=== PATIENT | female | born 1945 | race American Indian/Alaskan Native ===

== ENCOUNTER 2021-07-10 05:46 | Observation (INO) | payer MEDICARE ==
--- NOTE | 2021-07-10 06:12 | Emergency Department Report ---
ED Shortness of Breath HPI - General Chief Complaint: Chest Pain Stated Complaint: HIGH BP//DIALYSIS Time Seen by Provider: 07/10/21 06:09 Source: patient Mode of arrival: Ambulatory Limitations: No Limitations - History of Present Illness Initial Comments: Patient presents with chest pain or shortness of breath. She is a renal failure patient who is not been dialyzed in several days. She states that she is visiting her family here from [place]. She thought she had she would be able to arrange dialysis here. This was unsuccessful. She has not had her last 2 treatments. Normally, she has dialyzed on Sunday, , Sunday. Today, patient started noticing some chest tightness and difficulty breathing. She states that the shortness of breath is exertional and positional. She describes orthopnea. She has had some swelling in her feet and ankles. She has not really paid attention to her weight recently. She admits that she was supposed to go home today, but because she was having the symptoms decided to come here. She has not specifically noticed any alleviating factors of her symptoms. She describes them as mild. The chest pain does not radiate or migrate. - Related Data Allergies Allergy/AdvReac Type Severity Reaction Status Date / Time No Known Allergies Allergy Unverified 07/10/21 06:33 ED Review of Systems ROS: Stated complaint: HIGH BP//DIALYSIS Other details as noted in HPI Comment: All other systems reviewed and negative Constitutional: denies: fever Eyes: denies: eye pain ENT: denies: throat pain Respiratory: denies: cough Cardiovascular: as per HPI, chest pain Endocrine: denies: unexplained weight loss Gastrointestinal: denies: abdominal pain Genitourinary: denies: hematuria Musculoskeletal: denies: back pain Skin: denies: rash Neurological: denies: headache Hematological/Lymphatic: denies: easy bruising ED Past Medical Hx - Past Medical History Hx Hypertension: Yes Hx Renal Disease: Yes ( End-stage on dialysis) - Family History Family history: hypertension ED Physical Exam - General Limitations: No Limitations General appearance: alert, in no apparent distress - Head Head exam: Present: atraumatic, normocephalic - Eye Eye exam: Present: normal appearance, EOMI. Absent: scleral icterus - ENT ENT exam: Present: normal exam, normal orophraynx, normal external ear exam - Neck Neck exam: Present: normal inspection, full ROM. Absent: meningismus - Respiratory Respiratory exam: Present: rales. Absent: respiratory distress - Cardiovascular Cardiovascular Exam: Present: regular rate, normal rhythm - GI/Abdominal GI/Abdominal exam: Present: soft. Absent: distended - Extremities Exam Extremities exam: Present: normal capillary refill. Absent: pedal edema - Back Exam Back exam: Absent: CVA tenderness (R), CVA tenderness (L) - Neurological Exam Neurological exam: Present: alert, oriented X3. Absent: motor sensory deficit - Psychiatric Psychiatric exam: Present: normal affect, normal mood - Skin Skin exam: Present: warm, dry ED Course Vital Signs 07/10/21 05:52 Temperature 98.6 F Pulse Rate 76 Respiratory 18 Rate Blood Pressure 225/144 O2 Sat by Pulse 94 Oximetry - Reevaluation(s) Reevaluation #1: 07/10/21 06:11 IV and labs ordered. Reevaluation #2: 07/10/21 07:54 Labs have been noted. X-ray was reviewed. Dr. Randolph was notified. Agrees to admit with plans for dialysis later today. ED Medical Decision Making - Lab Data Result diagrams: 07/10/21 06:52 07/10/21 06:52 - EKG Data -: EKG Interpreted by Me EKG shows normal: sinus rhythm Rate: normal - EKG Data When compared to previous EKG there are: previous EKG unavailable 07/10/21 06:17 NSR at 75 with a LBBB. QRS is 136. QTc is prolonged at 502. There is no ST elevation or concordance. No discordance greater than 5mm. - Radiology Data Radiology results: report reviewed - Medical Decision Making patient presented with chest pain or shortness of breath in the setting of missed dialysis x2. She certainly does not seem to have evidence of STEMI based on EKG. There is no old EKG for comparison, but I presume that her bundle branch block is likely old. She is not having symptoms concerning for Covid or pneumonia. Radiographically, there is no evidence of either. She does not have a pulse deficit or wide mediastinum suggestive of aortic dissection. Labs and x-ray have been noted. I do believe that admission is appropriate. Her labs could be at baseline, but we have no old records for Comparison Critical Care Time: No Critical care attestation.: If time is entered above; I have spent that time in minutes in the direct care of this critically ill patient, excluding procedure time. ED Disposition Clinical Impression: Short of breath on exertion, Substernal chest pain, ESRD (end stage renal disease) on dialysis, Hypertensive urgency Disposition: 02 SHORT TERM HOSPITAL Is pt being admited?: Yes Does the pt Need Aspirin: No Condition: Stable
[2021-07-10] MEDS ORDERED: ASPIRIN 325 MG TAB PO NR (07:00)
--- NOTE | 2021-07-10 07:09 | XRay Report ---
CHEST 2 VIEWS INDICATION / CLINICAL INFORMATION: chest pain STUDY TIME: 636 COMPARISON: None available. FINDINGS: SUPPORT DEVICES: Dual lumen right subclavian central line is seen with tip in the area of the distal superior vena cava. HEART / MEDIASTINUM: Mild cardiomegaly. Cardiac surgical changes. LUNGS / PLEURA: Mild chronic appearing changes are seen. Probable scarring is seen in the lingula. Ar tifact is seen in the right base on PA view. No obvious acute pneumonic infiltrates are seen. No pneu mothorax. ADDITIONAL FINDINGS: No significant additional findings. Signer Name: Jose Arellano MD Signed: 07/10/2021 7:04 AM Workstation Name: [id number]
[2021-07-10 07:35] LABS: Basophils # (Auto) 0.1 K/mm3 (0.0-0.1); Basophils % (Auto) 1.1 % (0.0-1.8); Eosinophils # (Auto) 0.4 K/mm3 (0.0-0.4); Eosinophils % (Auto) 6.2 % (0.0-4.3); Hematocrit 33.3 % (30.3-42.9); Hemoglobin 11.1 gm/dl (10.1-14.3); Lymphocytes # (Auto) 1.2 K/mm3 (1.2-5.4); Mean Corpuscular HGB Conc 33 % (30-34); Mean Corpuscular Volume 85 fl (79-97); Monocytes # (Auto) 0.5 K/mm3 (0.0-0.8); Monocytes % (Auto) 6.6 % (0.0-7.3); Platelet Count 238 K/mm3 (140-440); Red Blood Count 3.92 M/mm3 (3.65-5.03); Red Cell Distribution Width 18.9 % (13.2-15.2)
[2021-07-10 07:45] LABS: Albumin 4.4 g/dL (3.9-5); Calcium 9.9 mg/dL (8.4-10.2)
[2021-07-10] MEDS ORDERED: ASPIRIN 81 MG TAB CHEW PO ONE (07:51)
[2021-07-10] MEDS ORDERED: NITROGLYCERIN 0.4 MG TAB SUBL SL PRN (07:51)
--- NOTE | 2021-07-10 07:57 | History and Physical Report ---
History of Present Illness Date of examination: 07/10/21 Date of admission: 07/10/2021 Chief complaint: Shortness of breath History of present illness: 75-year-old female with past medical history of hypertension, triple-vessel bypass in 2007, aortic valve replacement in 2007, ESRD on Sunday//Sunday hemodialysis presenting with chief complaint of shortness of breath. She is originally from [place] and is visiting her daughter here in [place]. She has been unsuccessful at rearranging hemodialysis outpatient. She missed her last 2 dialysis sessions on and Sunday. Today patient noticed some difficulty breathing. This shortness of breath is primarily exertional and positional. She also describes some orthopnea. She denied any swelling in her lower extremities. Patient admits that she was supposed to go home today however became alarmed by the symptoms and came to our emergency department. On my encounter she had no acute complaints. She states that her symptoms are more of shortness of breath rather than chest pain. She denies any pain in her jaw or shoulders. Of note, patient's blood pressure was noted to be elevated with systolic pressure of 220. Patient states that she has missed some of her home medications. When asked why she states that she just forgot to take them. Labetalol 10 mg IV ordered. Patient's home medications resumed. PMH Hypertension CAD ESRD on HD PSH Triple-vessel bypass surgery in 2007 Porcine aortic valve replacement in 2007 FH Reviewed and noncontributory SH Nicotine denies active use Alcohol denies active use Recreational drugs denies Medications and Allergies Allergies Allergy/AdvReac Type Severity Reaction Status Date / Time No Known Allergies Allergy Unverified 07/10/21 06:33 Active Meds: Active Medications Aspirin (Aspirin 325 Mg Tab) 325 mg PO ONCE@0700 NR Stop: 07/10/21 11:00 Last Admin: 07/10/21 07:29 Dose: 325 mg Documented by: Nitroglycerin (Nitroglycerin 0.4 Mg Tab Subl) 0.4 mg SL .Q5MIN PRN PRN Reason: Chest Pain Exam - Physical Exam Narrative exam: Physical Exam: VITAL SIGNS: Reviewed. GENERAL: The patient appears normally developed, Vital signs as documented. NAD, pleasant elderly woman HEAD: No signs of head trauma. EYES: Pupils are equal. Extraocular motions intact. EARS: Hearing grossly intact. MOUTH: Oropharynx is normal. NECK: No adenopathy, no JVD. CHEST: Chest with clear breath sounds bilaterally. No wheezes, rales, or rhonchi. Right chest wall tunneled catheter appreciated. CARDIAC: Regular rate and rhythm. S1 and S2, without murmurs, gallops, or rubs. VASCULAR: No Edema. Peripheral pulses normal and equal in all extremities. ABDOMEN: Soft, non tender and non distended. No rebound or guarding, and no masses palpated. Bowel Sounds normal. MUSCULOSKELETAL: Good range of motion of all major joints. Extremities without clubbing, cyanosis or edema. NEUROLOGIC EXAM: Alert although orientation could not be verified as patient withdrawn no focal sensory or strength deficits. PSYCHIATRIC: Mood normal. SKIN: detail exam as documented in skin assessment - Constitutional Vitals: Temp Pulse Resp BP Pulse Ox 98.6 F 76 18 225/144 94 07/10/21 05:52 07/10/21 05:52 07/10/21 05:52 07/10/21 05:52 07/10/21 05:52 HEART Score - HEART Score Troponin: Troponin T 0.062 ng/mL (0.00-0.029) H 07/10/21 06:52 Results - Labs CBC & Chem 7: 07/10/21 06:52 07/10/21 06:52 Labs: Laboratory Last Values WBC 7.0 K/mm3 (4.5-11.0) 07/10/21 06:52 RBC 3.92 M/mm3 (3.65-5.03) 07/10/21 06:52 Hgb 11.1 gm/dl (10.1-14.3) 07/10/21 06:52 Hct 33.3 % (30.3-42.9) 07/10/21 06:52 MCV 85 fl (79-97) 07/10/21 06:52 MCH 28 pg (28-32) 07/10/21 06:52 MCHC 33 % (30-34) 07/10/21 06:52 RDW 18.9 % (13.2-15.2) H 07/10/21 06:52 Plt Count 238 K/mm3 (140-440) 07/10/21 06:52 Lymph % (Auto) 17.0 % (13.4-35.0) 07/10/21 06:52 [place] % (Auto) 6.6 % (0.0-7.3) 07/10/21 06:52 Eos % (Auto) 6.2 % (0.0-4.3) H 07/10/21 06:52 Baso % (Auto) 1.1 % (0.0-1.8) 07/10/21 06:52 Lymph # (Auto) 1.2 K/mm3 (1.2-5.4) 07/10/21 06:52 [place] # (Auto) 0.5 K/mm3 (0.0-0.8) 07/10/21 06:52 Eos # (Auto) 0.4 K/mm3 (0.0-0.4) 07/10/21 06:52 Baso # (Auto) 0.1 K/mm3 (0.0-0.1) 07/10/21 06:52 Seg Neutrophils % 69.1 % (40.0-70.0) 07/10/21 06:52 Seg Neutrophils # 4.9 K/mm3 (1.8-7.7) 07/10/21 06:52 Sodium 141 mmol/L (137-145) 07/10/21 06:52 Potassium 5.4 mmol/L (3.6-5.0) H 07/10/21 06:52 Chloride 96.9 mmol/L (98-107) L 07/10/21 06:52 Carbon Dioxide 25 mmol/L (22-30) 07/10/21 06:52 Anion Gap 25 mmol/L 07/10/21 06:52 BUN 74 mg/dL (7-17) H 07/10/21 06:52 Creatinine 11.3 mg/dL (0.6-1.2) H 07/10/21 06:52 Estimated GFR 3 ml/min 07/10/21 06:52 BUN/Creatinine Ratio 7 % 07/10/21 06:52 Glucose 93 mg/dL (65-100) 07/10/21 06:52 Calcium 9.9 mg/dL (8.4-10.2) 07/10/21 06:52 Total Bilirubin 0.30 mg/dL (0.1-1.2) 07/10/21 06:52 AST 27 units/L (5-40) 07/10/21 06:52 ALT 20 units/L (7-56) 07/10/21 06:52 Alkaline Phosphatase 58 units/L (35-129) 07/10/21 06:52 Troponin T 0.062 ng/mL (0.00-0.029) H 07/10/21 06:52 Total Protein 7.6 g/dL (6.3-8.2) 07/10/21 06:52 Albumin 4.4 g/dL (3.9-5) 07/10/21 06:52 Albumin/Globulin Ratio 1.4 % 07/10/21 06:52 Assessment and Plan Assessment and plan: 1. ESRD on HD 2. Hypertensive emergency 3. Shortness of breathmultifactorial from missed hemodialysis sessions and hypertensive emergency 4. CAD 5. history of triple vessel bypass surgery 6. history of porcine aortic valve replacement Plan: Consultation placed to nephrology for hemodialysis -Ordered labetalol 10 mg IV x1 stat Labetalol 10 mg every 4 hours as needed Resume home antihypertensive/cardiac medications: Furosemide 20 mg p.o. daily, clonidine 0.1 mg p.o. twice daily, hydralazine 50 mg p.o. 3 times daily, metoprolol XL 25 mg p.o. daily, Imdur 30 mg p.o. daily -We will likely discharge patient today after hemodialysis. - Patient Problems (1) Hypertensive emergency Current Visit: Yes Status: Acute (2) Coronary artery disease Current Visit: Yes Status: Acute (3) ESRD (end stage renal disease) on dialysis Current Visit: No Status: Acute (4) Short of breath on exertion Current Visit: No Status: Acute
[2021-07-10 08:09] LABS: Chol/HDL Ratio 2.87 %
[2021-07-10] MEDS ORDERED: oxyCODONE /ACETAMINOPHEN 5-325MG TAB PO PRN (08:30)
[2021-07-10] MEDS ORDERED: ACETAMINOPHEN 325 MG TAB PO PRN (08:30)
[2021-07-10] MEDS ORDERED: ONDANSETRON 4 MG/2 ML INJ IV PRN (08:30)
[2021-07-10] MEDS ORDERED: SODIUM CHLORIDE 0.9% 100 ML IV PRN (11:31)
--- NOTE | 2021-07-10 11:34 | Consultation ---
History of Present Illness - Reason for Consult Consult date: 07/10/21 end stage renal disease Requesting physician: CAREN FLEMING - History of Present Illness 75-year-old lady with a history of hypertension, gated by end-stage renal disease on hemodialysis on a Sunday and Sunday schedule for about a year now. Patient lives in [facility] and was visiting her daughter in [place]. She tried to make arrangements for outpatient dialysis while she was here but unfortunately things fell through. She presents to the emergency room on account of chest pain or shortness of breath of several days duration. Her last dialysis was on Sunday before she left [place]. She has thus missed 2 sessions. She complains of chest tightness and shortness of breath which is positional and also exertional. She also noticed some lower extremity swelling. No nausea or vomiting. No dizziness or diaphoresis. No cough. On presentation in the ER, blood pressure was quite high at 225/144 mmHg. She was given IV labetalol in the ER. Potassium was also high at 5.4 mmol/L. I am consulted to provide dialysis to manage her fluid and electrolyte abnormalities. Patient received dialysis this afternoon and is already feeling a bit better. Blood pressure is however still high at 182/112 mmHg. She admits she also needs antihypertensive medications. 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 denies: smoking, alcohol abuse, prescription drug abuse Family history: CAD (Mother), hypertension (Father had hypertension and at age 79 of "old age". Siblings have hypertension and heart disease) Medications and Allergies Allergies Allergy/AdvReac Type Severity Reaction Status Date / Time No Known Allergies Allergy Unverified 07/10/21 06:33 Active Meds: Active Medications Acetaminophen (Acetaminophen 325 Mg Tab) 650 mg PO Q4H PRN PRN Reason: Pain MILD(1-3)/Fever >100.5/EM Sodium Chloride (Nacl 0.9%) 100 mls @ 999 mls/hr IV RANDOLPH PRN PRN Reason: Hypotension Labetalol HCl (Labetalol 20 Mg/4 Ml Inj) 10 mg IV Q4H PRN PRN Reason: sbp>160, hold for HR < 70 Nitroglycerin (Nitroglycerin 0.4 Mg Tab Subl) 0.4 mg SL .Q5MIN PRN PRN Reason: Chest Pain Ondansetron HCl (Ondansetron 4 Mg/2 Ml Inj) 4 mg IV Q8H PRN PRN Reason: Nausea And Vomiting Oxycodone/Acetaminophen (Oxycodone /Acetaminophen 5-325mg Tab) 1 tab PO Q6H PRN PRN Reason: Pain, Moderate (4-6) Sodium Chloride (Sodium Chloride 0.9% 10 Ml Flush Syringe) 10 ml IV BID NIKI Last Admin: 07/10/21 10:17 Dose: 10 ml Documented by: Sodium Chloride (Sodium Chloride 0.9% 10 Ml Flush Syringe) 10 ml IV PRN PRN PRN Reason: LINE FLUSH Review of Systems All systems: negative (Constitutional: no fever or chills. No anorexia or weight loss. HEENT: No sore throat or sinus drainage no hearing or vision impairment . Cardiovascular: See history of present illness. Respiratory: No cough, sputum, shortness of breath,) Gastrointestinal: constipation (Admits to constipation), no abdominal pain, no nausea, no vomiting, no diarrhea, no hematemesis Musculoskeletal: other (No joint pains or stiffness) Integumentary: pruritis (Itching around her permacath site), no rash Neurological: paralysis, numbness, seizures, other (Admits to occasional dizziness), no headaches Psychiatric: no anxiety, no depression Endocrine: cold intolerance, no heat intolerance Hematologic/Lymphatic: no easy bruising Exam - Vital Signs Vital signs: Vital Signs Temp Pulse Resp BP Pulse Ox 98.6 F 76 18 225/144 94 07/10/21 05:52 07/10/21 05:52 07/10/21 05:52 07/10/21 05:52 07/10/21 05:52 - Physical Exam Narrative exam: Elderly -[place] Islander female lying in bed in no acute distress HEENT: NCAT, bilateral corneal opacities, bilateral arcus senilis Neck: Supple, no venous distention CVS: S1S2 RRR with systolic click, no murmur, rub or gallop Chest: Clear to auscultation, right IJ permacath intact Abdomen: Protuberant, soft, nontender, no organomegaly, bowel sounds are present Extremities: No edema, no clubbing Genitourinary deferred Skin warm and dry Neuro: Awake, alert no focal deficits Results - Lab Results 07/10/21 06:52 07/10/21 06:52 Most recent lab results Calcium 9.9 mg/dL (8.4-10.2) 07/10/21 06:52 Assessment and Plan - Patient Problems (1) Hyperkalemia Current Visit: Yes Status: Acute Plan to address problem: Secondary to missed dialysis treatments. Hemodialysis done as soon as possible. Follow-up potassium (2) Hypertensive emergency Current Visit: Yes Status: Acute Plan to address problem: Secondary to volume overload due to missed dialysis and also missed antihyper tensive medications. Fluid removal was done on dialysis. Resume oral antihypertensive medications and follow-up blood pressure (3) Fluid overload Current Visit: Yes Status: Acute Plan to address problem: Secondary to missed dialysis. Fluid removal on dialysis and then follow-up (4) Coronary artery disease Current Visit: Yes Status: Acute Plan to address problem: Continue medical management
[2021-07-10 12:56] LABS: Hepatitis B Surface Antigen Nonreactive (Negative); Hepatitis C Virus Antibody Non-Reactive (NonReactive)
[2021-07-10] MEDS ORDERED: METOPROLOL SUCCINATE XL 25 MG TAB PO SCH (13:00)
[2021-07-10] MEDS ORDERED: FUROSEMIDE 20 MG TAB PO SCH (13:00)
[2021-07-10] MEDS ORDERED: cloNIDine 0.1 MG TAB PO SCH (13:00)
[2021-07-10] MEDS ORDERED: hydrALAZINE 25 MG TAB PO SCH (14:00)
[2021-07-10] MEDS ORDERED: ASPIRIN 81 MG TAB CHEW ONE (15:39)
[2021-07-10] MEDS ORDERED: hydrALAZINE 25 MG TAB PO ONE (15:45)
[2021-07-10] MEDS ORDERED: hydrALAZINE 20 MG/1 ML INJ ONE (16:47)
[2021-07-10] MEDS ORDERED: hydrALAZINE 20 MG/1 ML INJ IV ONE (16:56)
--- NOTE | 2021-07-10 17:50 | Discharge Summary ---
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 She is originally from [place] and is visiting her daughter here in [place]. She has been unsuccessful at rearranging hemodialysis outpatient. She missed her last 2 dialysis sessions on and Sunday. Today patient noticed some difficulty breathing. This shortness of breath is primarily exertional and positional. She also describes some orthopnea. She denied any swelling in her lower extremities. Patient admits that she was supposed to go home today however became alarmed by the symptoms and came to our emergency department. On my encounter she had no acute complaints. She states that her symptoms are more of shortness of breath rather than chest pain. She denies any pain in her jaw or shoulders. Of note, patient's blood pressure was noted to be elevated with systolic pressure of 220. Patient states that she has missed some of her home medications. When asked why she states that she just forgot to take them. Labetalol 10 mg IV ordered. Patient's home medications resumed. Hospital Course: [facility] Otero was admitted for hypertensive emergency and fluid overload beleived to be due to missed hemodialysis sessions and noncompliance with antihypertensive medications. Workup was negative for cardiac or infectious cause to her symptoms. She underwent a hemodialysis treatment while at our facility which drastically helped her symptoms. Furthermore, her blood pressure on admission was 220's/110's. She was given IV antihypertensive as well as her oral antihypertensive therapy. Her systolic blood pressures improved to the 150's. 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 Disposition: HOME / SELF CARE / HOMELESS Final Discharge Diagnosis (Prints w/discharge instructions): Hypertensive emergency Time spent for discharge: 25 - Discharge Diagnoses (1) Hypertensive emergency Status: Acute (2) Coronary artery disease Status: Acute (3) ESRD (end stage renal disease) on dialysis Status: Acute (4) Short of breath on exertion Status: Acute Core Measure Documentation - Palliative Care Palliative Care/ Comfort Measures: Not Applicable - Core Measures Any of the following diagnoses?: none Exam - Physical Exam Narrative exam: Physical Exam: VITAL SIGNS: Reviewed. GENERAL: The patient appears normally developed, Vital signs as documented. N AD, pleasant elderly woman HEAD: No signs of head trauma. EYES: Pupils are equal. Extraocular motions intact. EARS: Hearing grossly intact. MOUTH: Oropharynx is normal. NECK: No adenopathy, no JVD. CHEST: Chest with clear breath sounds bilaterally. No wheezes, rales, or rhonchi. Right chest wall tunneled catheter appreciated. CARDIAC: Regular rate and rhythm. S1 and S2, without murmurs, gallops, or rubs. VASCULAR: No Edema. Peripheral pulses normal and equal in all extremities. ABDOMEN: Soft, non tender and non distended. No rebound or guarding, and no masses palpated. Bowel Sounds normal. MUSCULOSKELETAL: Good range of motion of all major joints. Extremities without clubbing, cyanosis or edema. NEUROLOGIC EXAM: Alert although orientation could not be verified as patient withdrawn no focal sensory or strength deficits. PSYCHIATRIC: Mood normal. SKIN: detail exam as documented in skin assessment - Constitutional Vitals: Temp Pulse Resp BP Pulse Ox 97.0 F L 75 20 183/111 98 07/10/21 15:54 07/10/21 15:54 07/10/21 15:54 07/10/21 17:03 07/10/21 15:54 Plan Activity: no restrictions Weight Bearing Status: Full Weight Bearing Diet: renal Follow up with: PRIMARY MD ACE [Primary Care Provider] - 7 Days
[2021-07-10 18:50] VITALS: BP 151/91
--- NOTE | 2021-07-11 10:45 | Electrocardiograph Report ---
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
== END 2021-07-10 18:53 | disposition home or self-care (01) ==
LOC: ED 05:46 → 4A 09:46
PROVIDERS: ADMIT Internal Medicine; ATTEND Internal Medicine
DX: I16.1 Hypertensive emergency (principal); I12.0 Hypertensive chronic kidney disease with stage 5 chronic kidney disease or end stage renal disease; N18.6 End stage renal disease; I25.10 Atherosclerotic heart disease of native coronary artery without angina pectoris; E87.70 Fluid overload, unspecified; E87.5 Hyperkalemia; R07.2 Precordial pain; Z99.2 Dependence on renal dialysis; Z79.899 Other long term (current) drug therapy; Z98.890 Other specified postprocedural states; Z79.82 Long term (current) use of aspirin; Z95.1 Presence of aortocoronary bypass graft
CPT/HCPCS: 36415; 71046; 80053; 80061; 80074; 84484; 85025; 93005; 96374; 96375; 96376; 99285; G0257; G0378; J0360

== ENCOUNTER 2021-07-12 11:37 | Emergency (ER) | payer MEDICARE ==
--- NOTE | 2021-07-12 12:23 | Event Note ---
ED Screening Note ED Screening Note: last HD Sunday in [place] This initial assessment/diagnostic orders/clinical plan/treatment(s) is/are subject to change based on patients health status, clinical progression and re- assessment by fellow clinical providers in the ED. Further treatment and workup at subsequent clinical providers discretion. Patient/guardian urged not to elope from the ED as their condition may be serious if not clinically assessed and managed. Initial orders include: labs/ ? need for emergent HD
[2021-07-12 13:04] VITALS: BP 162/96
--- NOTE | 2021-07-12 13:29 | Emergency Department Report ---
HPI - General Chief Complaint: Recheck/Abnormal Lab/Rx Time Seen by Provider: 07/12/21 12:09 - HPI HPI: 75-year-old female with history of hypertension and ESRD on HD presents for further hemodialysis. The patient is visiting from [place] and was unable to set up dialysis here in [place]. She states that she came in a few days ago with worsening shortness of breath and signs of volume overload and was admitted to the hospital, had hemodialysis, and was discharged with her symptoms significantly improved. She states that she is here today because she was told that if she needed further dialysis she should return. She states her symptoms have not significantly changed since she was discharged on 07/10 but she feels that they will return very quickly if she does not get dialyzed now. She does not feel short of breath, has no chest pain, and her blood pressure has not been significantly elevated. She denies any other associated symptoms or complaints. She has a right chest wall dialysis catheter in place which was placed in [facility]. She is vaccinated against COVID-19. ED Past Medical Hx - Past Medical History Hx Hypertension: Yes Hx Renal Disease: Yes ( End-stage on dialysis) ED Review of Systems ROS: Stated complaint: DIALYSIS TREATMENT Other details as noted in HPI Constitutional: denies: chills, fever Eyes: denies: eye pain, vision change ENT: denies: throat pain, congestion Respiratory: denies: cough, shortness of breath Cardiovascular: denies: chest pain, palpitations Gastrointestinal: denies: abdominal pain, nausea, vomiting Musculoskeletal: denies: back pain, joint swelling Skin: denies: rash, lesions Neurological: denies: headache, weakness Physical Exam - Physical Exam Vital Signs: Vital Signs 07/12/21 13:02 Temperature 98.4 F Pulse Rate 68 Respiratory 16 Rate Blood Pressure 162/96 O2 Sat by Pulse 96 Oximetry Physical Exam: GENERAL: Well developed and well nourished. No acute distress HEAD: Normocephalic. No obvious signs of trauma. ENT: Moist mucous membranes. EYES: Extraocular movements are intact. Pupils are equal round and reactive to light bilaterally NECK: Supple. Full ROM is intact. Trachea is midline. LUNGS: Nonlabored breathing. Equal chest rise bilaterally. Clear to auscultation bilaterally. CARDIOVASCULAR: Regular rate and rhythm. No murmurs or rubs. CHEST: Right upper chest wall dialysis catheter is in place without surrounding erythema or drainage VASCULAR: Cap refill < 2 seconds. 1+ pitting edema of the bilateral lower extremities. ABDOMEN: Abdomen is soft and nondistended. There is no significant tenderness, guarding or rebound. SKIN: Skin is warm and dry NEURO: Patient is awake, alert, and oriented. instructor decorating II-XII grossly intact. No focal deficits. Normal motor and sensory exam throughout. Normal speech. MUSCULOSKELETAL: No obvious deformities. No significant tenderness. Normal ROM t hroughout. BACK/SPINE: No midline tenderness or step-offs of the C/T/L spine. No costovertebral angle tenderness. ED Course Vital Signs 07/12/21 13:02 Temperature 98.4 F Pulse Rate 68 Respiratory 16 Rate Blood Pressure 162/96 O2 Sat by Pulse 96 Oximetry ED Medical Decision Making - Lab Data Result diagrams: 07/12/21 13:12 07/12/21 13:12 Lab Results 07/12/21 07/12/21 Range/Units 13:12 13:12 WBC 6.3 (4.5-11.0) K/mm3 RBC 3.93 (3.65-5.03) M/mm3 Hgb 10.7 (10.1-14.3) gm/dl Hct 32.8 (30.3-42.9) % MCV 83 (79-97) fl MCH 27 L (28-32) pg MCHC 33 (30-34) % RDW 18.8 H (13.2-15.2) % Plt Count 273 (140-440) K/mm3 Sodium 139 (137-145) mmol/L Potassium 5.2 H (3.6-5.0) mmol/L Chloride 98.2 (98-107) mmol/L Carbon Dioxide 25 (22-30) mmol/L Anion Gap 21 mmol/L BUN 53 H (7-17) mg/dL Creatinine 8.9 H (0.6-1.2) mg/dL Estimated GFR 5 ml/min BUN/Creatinine Ratio 6 % Glucose 101 H (65-100) mg/dL Calcium 9.6 (8.4-10.2) mg/dL Phosphorus 5.60 H (2.5-4.5) mg/dL Magnesium 2.70 H (1.7-2.3) mg/dL NT-Pro-B Natriuret Pep > 91578 H (0-900) pg/mL - Medical Decision Making 75-year-old female with history of hypertension and ESRD on HD presents for further hemodialysis. The patient is visiting from [place] and was unable to set up dialysis here in [place]. She was seen at our hospital and was found to have several abnormalities including clinics [place] significant volume overload and was admitted to the hospital, dialyzed, and discharged with her symptoms significantly improved. She states her symptoms have not significantly changed since she was discharged on 07/10 but she feels that they will return very quickly if she does not get dialyzed now. She is afebrile and with normal vital signs with the exception of elevated blood pressure. Physical examination reveals no significant abnormalities and clear lung holden bilaterally. Right chest wall dialysis catheter is in place. We will obtain full set of labs and plan to consult nephrology for possible hemodialysis. Labs reveal findings consistent with ESRD without any significant electrolyte abnormalities or leukocytosis/anemia. BNP is noted to be severely elevated at greater than 70,000. On repeat assessment, the patient is resting comfortably in a chair. She reports no new symptoms or complaints. At 2:30 PM I spoke with Carola, the nurse practitioner for Dr. Hearn of nephrology regarding the case. We discussed the lab findings as well as my concern that the patient may become decompensated quickly should she not be dialyzed today. She discussed the case with Dr. Hearn and stated that the patient will be dialyzed today but does not require admission and can be discharged from the emergency department. All of this was discussed with the patient who expressed understanding and agreement with this plan of care. At 3:45 PM, I received a call from Carola who stated that unfortunately there is no available staff that can perform hemodialysis for this patient in a timely manner and Dr. Hearn recommends that she return in the morning for hemodialysis which can be performed at that time. I discussed with the patient the current situation and apologized for the time that she spent here in our emergency department but conveyed the recommendation from Dr. Hearn that she return in the morning for hemodialysis. I also spoke to the patient's daughter over the phone with her permission and conveyed this recommendation to her. She states that she will drive the patient back to the emergency department for dialysis in the morning. Critical care attestation.: If time is entered above; I have spent that time in minutes in the direct care o f this critically ill patient, excluding procedure time. ED Disposition Clinical Impression: ESRD (end stage renal disease) on dialysis, Volume overload Disposition: HOME / SELF CARE / HOMELESS Is pt being admited?: No Condition: Stable Instructions: Dialysis Additional Instructions: The assembly line leader has reviewed your labs and knows about your case and recommends that you return tomorrow morning for dialysis. There is concern that if you do not get dialyzed within the next day you may become seriously ill and could suff er serious consequences including possible temporary/permanent disability or in rare cases even . Return to the emergency department should you develop worsening symptoms or any other new concerns. Referrals: GAURAV MANCILLA [Other] - 3-5 Days
[2021-07-12 13:33] LABS: Hematocrit 32.8 % (30.3-42.9); Hemoglobin 10.7 gm/dl (10.1-14.3); Mean Corpuscular HGB Conc 33 % (30-34); Mean Corpuscular Volume 83 fl (79-97); Platelet Count 273 K/mm3 (140-440); Red Blood Count 3.93 M/mm3 (3.65-5.03); Red Cell Distribution Width 18.8 % (13.2-15.2)
[2021-07-12 13:48] LABS: Blood Urea Nitrogen 53 mg/dL (7-17); Calcium 9.6 mg/dL (8.4-10.2); Hemolysis Index 18
[2021-07-12 13:56] LABS: BUN/Creatinine Ratio 6
--- NOTE | 2021-07-13 11:34 | History and Physical Report ---
History of Present Illness Chief complaint: I need dialysis History of present illness: 75 YO Female with HTN, ESRD on HD(T,R,Sa) presents to ED for evaluation. Patient reports "I need dialysis". Patient states that she traveled to [place] from the state of [place] and was unable to get dialysis arranged. Patient states that she was last dialyzed on 07/10/2021 and needs dialysis today. Patient denies fever, chills, chest pain, palpitation, productive cough, skin rash, recent ill contacts, known exposure to COVID-19. Patient is vaccinated against COVID-19. Patient transported to [facility] via private vehicle for further care and evaluation of the aforementioned symptoms. Patient seen and evaluated in the emergency department. All lab and imaging studies reviewed. Patient found to have additional disease in need of dialysis. Nephrology team consulted in ED. Patient placed in observation status and admitted to medical floor. Nephrology team consulted in ED for urgent dialysis. Prior admission on 2020 reviewed. All medication listed at time of admission has been reconciled. Advanced care planning conducted in ED. Past History Past Medical History: ESRD, hypertension, other (See HPI) Past Surgical History: Other (Dialysis access) Social history: single Family history: diabetes, hypertension Medications and Allergies Allergies Allergy/AdvReac Type Severity Reaction Status Date / Time Penicillins AdvReac Unknown Verified 07/13/21 09:13 shellfish derived AdvReac Unknown Verified 07/13/21 09:13 Active Meds: Active Medications Acetaminophen (Acetaminophen 325 Mg Tab) 650 mg PO Q4H PRN PRN Reason: Pain MILD(1-3)/Fever >100.5/EM Albuterol (Albuterol 2.5 Mg/3 Ml Nebu) 2.5 mg IH Q4HRT PRN PRN Reason: Shortness Of Breath Hydromorphone HCl (Hydromorphone 1 Mg/1 Ml Inj) 0.5 mg IV Q23H PRN PRN Reason: Pain , Severe (7-10) Ondansetron HCl (Ondansetron 4 Mg/2 Ml Inj) 4 mg IV Q8H PRN PRN Reason: Nausea And Vomiting Oxycodone/Acetaminophen (Oxycodone /Acetaminophen 5-325mg Tab) 1 tab PO Q16H PRN PRN Reason: Pain, Moderate (4-6) Sodium Chloride (Sodium Chloride 0.9% 10 Ml Flush Syringe) 10 ml IV BID NIKI Sodium Chloride (Sodium Chloride 0.9% 10 Ml Flush Syringe) 10 ml IV PRN PRN PRN Reason: LINE FLUSH Review of Systems Constitutional: no weight loss, no weight gain, no fever, no chills Ears, nose, mouth and throat: no ear pain, no tinnitis, no nose pain, no nasal congestion, no nasal discharge Breasts: no change in shape, no swelling Cardiovascular: no chest pain, no orthopnea Respiratory: no cough, no cough with sputum, no hemoptysis, no dyspnea on exertion Gastrointestinal: no abdominal pain, no nausea, no vomiting, no diarrhea, no constipation, no change in bowel habits Genitourinary Female: no pelvic pain, no flank pain, no dysuria, no urinary frequency, no urgency Rectal: no pain, no incontinence, no bleeding Musculoskeletal: no neck stiffness, no neck pain, no shooting arm pain, no arm numbness/tingling, no shooting leg pain Integumentary: no rash, no pruritis, no redness, no wounds, no jaundice, no blisters Neurological: no transient paralysis, no paralysis, no weakness, no numbness, no tingling, no syncope Psychiatric: no anxiety, no sleep disturbances, no insomnia, no hypersomnia, no change in appetite Endocrine: no cold intolerance, no heat intolerance, no excessive thirst, no polydipsia, no polyuria, no excessive sweating Hematologic/Lymphatic: no easy bruising, no easy bleeding Allergic/Immunologic: no urticaria, no allergic rhinitis Exam - Constitutional Vitals: Temp Pulse Resp BP Pulse Ox 98.4 F 68 16 162/96 96 07/12/21 13:02 07/12/21 13:02 07/12/21 13:02 07/12/21 13:02 07/12/21 13:02 General appearance: Present: mild distress, well-nourished - EENT Eyes: Present: PERRL ENT: hearing intact, clear oral mucosa - Neck Neck: Present: supple, normal ROM - Respiratory Respiratory effort: normal Respiratory: bilateral: CTA - Cardiovascular Heart Sounds: Present: S1 & S2. Absent: rub, click - Extremities Extremities: pulses symmetrical, No edema Peripheral Pulses: within normal limits - Abdominal General gastrointestinal: Present: soft, non-tender, non-distended, normal bowel sounds Female genitourinary: Present: normal - Integumentary Integumentary: Present: clear, warm, dry - Musculoskeletal Musculoskeletal: gait normal, strength equal bilaterally - Psychiatric Psychiatric: appropriate mood/affect, intact judgment & insight - Neurologic Neurologic: CNII-XII intact, moves all extremities Results - Labs CBC & Chem 7: 07/12/21 13:12 07/12/21 13:12 Labs: Abnormal lab results 07/12/21 07/12/21 Range/Units 13:12 13:12 MCH 27 L (28-32) pg RDW 18.8 H (13.2-15.2) % Potassium 5.2 H (3.6-5.0) mmol/L BUN 53 H (7-17) mg/dL Creatinine 8.9 H (0.6-1.2) mg/dL Glucose 101 H (65-100) mg/dL Phosphorus 5.60 H (2.5-4.5) mg/dL Magnesium 2.70 H (1.7-2.3) mg/dL NT-Pro-B Natriuret Pep > 90266 H (0-900) pg/mL Assessment and Plan - Patient Problems (1) End-stage renal disease needing dialysis Status: Acute Plan to address problem: Dialysis as per renal team, strict I's/O, avoid nephrotoxic agents, nephrology team consulted in ED (2) Hypertension Status: Acute Qualifiers: Hypertension type: primary hypertension Qualified Code(s): I10 - Essential (primary) hypertension Plan to address problem: Monitor blood pressure every shift, continue prehospital antihypertensive therapy. (3) Fluid overload Status: Acute Plan to address problem: Dialysis as per renal team, monitor fluid balance. (4) DVT prophylaxis Status: Acute Plan to address problem: SCD to bilateral extremities while in bed patient is ambulatory (5) Advance care planning Status: Acute Plan to address problem: Disease education conducted, care plan discussed, diagnosis discussed, prognosis discussed, patient is full code, patient knowledges understanding agreement with care plan, +30 minutes.
[2021-07-13] MEDS ORDERED: HYDROmorphone 1 MG/1 ML INJ IV PRN (12:00)
[2021-07-13] MEDS ORDERED: ONDANSETRON 4 MG/2 ML INJ IV PRN (12:00)
[2021-07-13] MEDS ORDERED: ACETAMINOPHEN 325 MG TAB PO PRN (12:00)
[2021-07-13] MEDS ORDERED: oxyCODONE /ACETAMINOPHEN 5-325MG TAB PO PRN (12:00)
[2021-07-13] MEDS ORDERED: ALBUTEROL 2.5 MG/3 ML NEBU IH PRN (12:00)
== END 2021-07-12 16:05 | disposition home or self-care (01) ==
LOC: ED 11:37
DX: I12.0 Hypertensive chronic kidney disease with stage 5 chronic kidney disease or end stage renal disease (principal); N18.6 End stage renal disease; Z99.2 Dependence on renal dialysis; E87.70 Fluid overload, unspecified
CPT/HCPCS: 36415; 80048; 83735; 83880; 84100; 85027; 99283

== ENCOUNTER 2021-07-13 08:45 | Observation (INO) | payer MEDICARE ==
--- NOTE | 2021-07-13 10:51 | Emergency Department Report ---
HPI - General Chief Complaint: Weakness Time Seen by Provider: 07/13/21 10:41 - HPI HPI: 75-year-old -[place] female returns to the emergency department to receive dialysis. This patient is from [facility] and visiting her daughter here in [place]. She failed to arrange for outpatient dialysis and so has been coming to this emergency department to get dialysis. At home the patient gets HD on Sunday//Sunday. She did get dialysis here on 07/10, 3 days ago. Patient came in yesterday to get dialysis performed, but the patient was not able to get dialysis until midnight, or even this morning, so she was discharged home and told to return in the a.m. She denies any chest pain, shortness of breath, edema, but says that she wants to get dialysis to "avoid getting sick." She returns home on Sunday, 2 days from now. On top of the ESRD on HD, patient also has a history of hypertension and coronary artery disease with CABG. ED Past Medical Hx - Past Medical History Hx Hypertension: Yes Hx Renal Disease: Yes ( End-stage on dialysis) ED Review of Systems ROS: Stated complaint: HERE FOR DIALYSIS Other details as noted in HPI Comment: All other systems reviewed and negative Constitutional: denies: chills, fever Eyes: denies: eye pain, vision change ENT: denies: ear pain, throat pain Respiratory: denies: cough, shortness of breath Cardiovascular: denies: chest pain, edema Gastrointestinal: denies: abdominal pain, vomiting Genitourinary: denies: dysuria, discharge Musculoskeletal: denies: back pain, arthralgia Skin: denies: rash, lesions Neurological: denies: headache, weakness Physical Exam - Physical Exam Vital Signs: Vital Signs 07/13/21 09:13 Temperature 99.1 F Pulse Rate 77 Respiratory 18 Rate Blood Pressure 206/118 O2 Sat by Pulse 95 Oximetry Physical Exam: GENERAL: The patient is well-developed well-nourished. HENT: Normocephalic. Atraumatic. Patient has moist mucous membranes. EYES: Extraocular motions are intact. NECK: Supple. Trachea is midline. CHEST/LUNGS: Mild coarse breath sounds. No tachypnea or accessory muscle use. HEART/CARDIOVASCULAR: Regular. There is no tachycardia. There is no murmur. ABDOMEN: Abdomen is soft, nontender. Patient has normal bowel sounds. SKIN: Skin is warm and dry. NEURO: The patient is awake, alert, and oriented. The patient is cooperative. Normal speech. MUSCULOSKELETAL: There is no tenderness or deformity. There is no limitation range of motion. ED Course Vital Signs 07/13/21 09:13 Temperature 99.1 F Pulse Rate 77 Respiratory 18 Rate Blood Pressure 206/118 O2 Sat by Pulse 95 Oximetry - Consultations Consultation #1: 07/13/21 11:08 I spoke to the hotel recreational facilities manager on-call, Dr. Grossman, who will consult on the patient and provide dialysis. He does not require a repeat metabolic panel since 1 was done yesterday at 1 PM. ED Medical Decision Making - Medical Decision Making This patient returns to the emergency department to receive dialysis. She was unable to get dialysis yesterday and was told to return in the morning. The blood work from yesterday shows a potassium of 5.2 and renal insufficiency consistent with her end-stage renal disease on hemodialysis. I spoke with the hotel recreational facilities manager on-call who did not require any further laboratory studies and will provide dialysis. Patient does have significantly elevated blood pressure. The patient will receive immediate dialysis and was accepted for admission by the hospitalist, Dr. Marcus. Critical Care Time: No Critical care attestation.: If time is entered above; I have spent that time in minutes in the direct care of this critically ill patient, excluding procedure time. ED Disposition Clinical Impression: End-stage renal disease needing dialysis, Hypertensive urgency Disposition: ADMITTED INPATIENT Is pt being admited?: Yes Time of Disposition: 11:09
--- NOTE | 2021-07-13 11:12 | Consultation ---
History of Present Illness - Reason for Consult Consult date: 07/13/21 end stage renal disease, hyperkalemia - History of Present Illness The patient is a 75 YO female with history significant for Hypertension and ESRD on hemodialysis (TTS) who presented to [facility] ED 07/12 for hemodialysis need. Patient lives in [place] and was visiting her daughter in [place]. She tried to make arrangements for outpatient dialysis but things fell through. She was last dialyzed on 07/10 at this facility. Currently she denies any CP, sob, leg swelling, N, V, D, fever, cough, dizziness, weakness or syncope. Her BP was high, better now. Potassium was 5.2. Nephrology was consulted for ESRD management. Medications and Allergies Allergies Allergy/AdvReac Type Severity Reaction Status Date / Time Penicillins AdvReac Unknown Verified 07/13/21 09:13 shellfish derived AdvReac Unknown Verified 07/13/21 09:13 Review of Systems All systems: negative Exam - Vital Signs Vital signs: Vital Signs Temp Pulse Resp BP Pulse Ox 99.1 F 77 18 206/118 95 07/13/21 09:13 07/13/21 09:13 07/13/21 09:13 07/13/21 09:13 07/13/21 09:13 Assessment and Plan 1. ESRD: Patient is on maintenance hemodialysis, TTS schedule. Meds dosage based on GFR. Last HD 07/10. Hemodialysis: today. 2. FEN: UF with HD as tolerated. Limit fluid intake. Monitor lytes and volume status. 3. Hypertension: Adjust meds as needed. Monitor. Subjective: Patient was seen and examined at the bedside. General Appearance: General appearance: well-developed, appears stated age, not in distress HEENT: ATNC, pupils equal Neck: trachea midline Respiratory: ctab Heart: regular, S1S2, no murmur Abdomen: soft, bowel sounds heard, not tender Integumentary: no rash, warm and dry Neurologic: AO, able to move extremities Ext: no edema Hemodialysis access: R IJ tunnel catheter
--- NOTE | 2021-07-13 11:15 | Event Note ---
Date: 07/13/21 Hemodialysis consent obtained from patient.
[2021-07-13] MEDS ORDERED: HEPARIN 10,000 UNITS/10 ML VIAL IV PRN (11:30)
[2021-07-13] MEDS ORDERED: SODIUM CHLORIDE 0.9% 100 ML IV PRN (11:30)
--- NOTE | 2021-07-13 12:11 | History and Physical Report ---
Medications and Allergies Allergies Allergy/AdvReac Type Severity Reaction Status Date / Time Penicillins AdvReac Unknown Verified 07/13/21 09:13 shellfish derived AdvReac Unknown Verified 07/13/21 09:13 Active Meds: Active Medications Heparin Sodium (Porcine) (Heparin 10,000 Units/10 Ml Vial) 3,000 unit IV RANDOLPH PRN PRN Reason: hemodialysis Sodium Chloride (Nacl 0.9%) 100 mls @ 999 mls/hr IV RANDOLPH PRN PRN Reason: Hypotension Exam - Constitutional Vitals: Temp Pulse Resp BP Pulse Ox 99.1 F 77 18 206/118 95 07/13/21 09:13 07/13/21 09:13 07/13/21 09:13 07/13/21 09:13 07/13/21 09:13
[2021-07-13] MEDS ORDERED: HYDROmorphone 1 MG/1 ML INJ IV PRN (12:30)
[2021-07-13] MEDS ORDERED: ACETAMINOPHEN 325 MG TAB PO PRN (12:30)
[2021-07-13] MEDS ORDERED: ALBUTEROL 2.5 MG/3 ML NEBU IH PRN (12:30)
[2021-07-13] MEDS ORDERED: oxyCODONE /ACETAMINOPHEN 5-325MG TAB PO PRN (12:30)
[2021-07-13] MEDS ORDERED: ONDANSETRON 4 MG/2 ML INJ IV PRN (13:00)
[2021-07-13 15:27] VITALS: BP 131/84
--- NOTE | 2021-07-13 20:34 | Discharge Summary ---
Providers - Providers Date of Admission: 07/13/21 12:09 Attending physician: MEG JANE 07/13/21 11:07 Consult to Physician [CONS] Routine Comment: Consulting Provider: ERNIE BUNCH Physician Instructions: Reason For Exam: ESRD needing dialysis Primary care physician: [employer] FLOOR ATTENDANT Hospitalization Condition: Stable Hospital course: 75 YO Female with HTN, ESRD on HD(T,R,Sa) presents to ED for evaluation. Patient reports "I need dialysis". Patient states that she traveled to [place] from the state of [place] and was unable to get dialysis arranged. Patient states that she was last dialyzed on 07/10/2021 and needs dialysis today. Patient denies fever, chills, chest pain, palpitation, productive cough, skin rash, recent ill contacts, known exposure to COVID-19. Patient is vaccinated against COVID-19. Patient transported to [facility] via private vehicle for further care and evaluation of the aforementioned symptoms. Patient seen and evaluated in the emergency department. All lab and imaging studies reviewed. Patient found to have additional disease in need of dialysis. Nephrology team consulted in ED. Patient placed in observation status and admitted to medical floor. Nephrology team consulted in ED for urgent dialysis. Prior admission on 2020 reviewed. All medication listed at time of admission has been reconciled. Advanced care planning conducted in ED. Pt underwent dialysis. Pt medically optimized and back to usual state of health and subsequently discharged home. Pt instructed to f/u pcp 3-5 days. 35 minutes dedicated to patient discharge. Disposition: 01 HOME / SELF CARE / HOMELESS Final Discharge Diagnosis (Prints w/discharge instructions): ESRD - Discharge Diagnoses (1) ESRD (end stage renal disease) on dialysis Status: Acute Core Measure Documentation - Palliative Care Palliative Care/ Comfort Measures: Not Applicable - Core Measures Any of the following diagnoses?: none Exam - Constitutional Vitals: Temp Pulse Resp BP Pulse Ox 97.0 F L 66 17 131/84 97 07/13/21 15:23 07/13/21 15:23 07/13/21 15:23 07/13/21 15:23 07/13/21 15:23 General appearance: Present: no acute distress, well-nourished - EENT Eyes: Present: PERRL ENT: hearing intact, clear oral mucosa - Neck Neck: Present: supple, normal ROM - Respiratory Respiratory effort: normal Respiratory: bilateral: CTA - Cardiovascular Heart Sounds: Present: S1 & S2. Absent: rub, click - Extremities Extremities: pulses symmetrical, No edema Peripheral Pulses: within normal limits - Abdominal General gastrointestinal: Present: soft, non-tender, non-distended, normal bowel sounds Female genitourinary: Present: normal - Integumentary Integumentary: Present: clear, warm, dry - Musculoskeletal Musculoskeletal: gait normal, strength equal bilaterally - Psychiatric Psychiatric: appropriate mood/affect, intact judgment & insight - Neurologic Neurologic: CNII-XII intact, moves all extremities Plan Activity: advance as tolerated Diet: renal Follow up with: PRIMARY CARE, [Primary Care Provider] - 7 Days
== END 2021-07-13 17:00 | disposition home or self-care (01) ==
LOC: ED 08:45 → 3A 12:09
PROVIDERS: ADMIT Internal Medicine; ATTEND Internal Medicine
DX: I12.0 Hypertensive chronic kidney disease with stage 5 chronic kidney disease or end stage renal disease (principal); N18.6 End stage renal disease; E87.70 Fluid overload, unspecified; E87.5 Hyperkalemia; Z99.2 Dependence on renal dialysis
CPT/HCPCS: 99284; G0257; G0378

== ENCOUNTER 2022-03-29 08:33 | Emergency (ER) | payer MEDICARE ==
[2022-03-29 09:37] VITALS: BP 146/76
[2022-03-29 12:19] LABS: Basophils # (Auto) 0.1 K/mm3 (0.0-0.1); Basophils % (Auto) 1.2 % (0.0-1.8); Eosinophils # (Auto) 0.1 K/mm3 (0.0-0.4); Eosinophils % (Auto) 1.6 % (0.0-4.3); Hematocrit 28.5 % (30.3-42.9); Hemoglobin 9.4 gm/dl (10.1-14.3); Lymphocytes # (Auto) 1.4 K/mm3 (1.2-5.4); Lymphocytes % (Auto) 20.6 % (13.4-35.0); Mean Corpuscular HGB Conc 33 % (30-34); Mean Corpuscular Volume 92 fl (79-97); Monocytes # (Auto) 0.6 K/mm3 (0.0-0.8); Monocytes % (Auto) 9.6 % (0.0-7.3); Platelet Count 308 K/mm3 (140-440); Red Blood Count 3.12 M/mm3 (3.65-5.03)
[2022-03-29 12:34] LABS: Red Cell Distribution Width 20.9 % (13.2-15.2)
[2022-03-29 12:36] LABS: Albumin 4.3 g/dL (3.9-5); Calcium 9.7 mg/dL (8.4-10.2)
== END 2022-03-29 20:04 | disposition left against medical advice (07) ==
LOC: ED 08:33
DX: Z99.2 Dependence on renal dialysis (principal); Z53.21 Procedure and treatment not carried out due to patient leaving prior to being seen by health care provider
CPT/HCPCS: 36415; 80053; 85025

== ENCOUNTER 2022-04-21 12:28 | Emergency (ER) | payer MEDICARE ==
--- NOTE | 2022-04-21 13:32 | Event Note ---
ED Screening Note ED Screening Note: CC CP AND SOB SENT BY PCP FOR EKG AND TO [facility] FOR LABS HD LAST TIME YEST DUE TOMORROW FRESCENIUS [place] AV FISTULA- ARM SWELLING POOR INFORMANT This initial assessment/diagnostic orders/clinical plan/treatment(s) is/are subject to change based on patients health status, clinical progression and re-assessment by fellow clinical providers in the ED. Further treatment and workup at subsequent clinical providers discretion. Patient/guardian urged not to elope from the ED as their condition may be serious if not clinically assessed and managed. Initial orders include: LABS/EKG
[2022-04-21 13:35] VITALS: BP 143/74
--- NOTE | 2022-04-21 14:02 | XRay Report ---
CHEST 2 VIEWS INDICATION / CLINICAL INFORMATION: Chest Pain. COMPARISON: 07/10/2021 FINDINGS: SUPPORT DEVICES: Right IJ venous catheter terminates in the lower SVC. HEART / MEDIASTINUM: Heart size is at the upper limits of normal, unchanged. Previous valvuloplasty i s noted. LUNGS / PLEURA: No significant pulmonary or pleural abnormality. No pneumothorax. ADDITIONAL FINDINGS: No significant additional findings. IMPRESSION: 1. No acute findings. No significant change since 07/10/2021. Signer Name: Jose Alfredo Valenzuela Jr, MD Signed: 04/21/2022 1:58 PM Workstation Name: [id number]
--- NOTE | 2022-04-23 19:31 | Electrocardiograph Report ---
[facility] Test Date: 2022-04-21 Test Time: 13:42:07 Pat Name: MARIA ELENA CARRILLO Department: Room: Gender: F Couturiere: ER : 1945 Requested By: DAISY CADE Order Number: [id number] Reading MD: Barry Stewart Measurements Intervals [place] Rate: 59 P: 0 ID: [id number] QRS: -64 QRSD: 131 T: 126 QT: 519 QTc: 515 Interpretive Statements Sinus bradycardia with marked first-degree AV block Possible [place] AV block Left bundle branch block Compared to ECG 07/10/2021 06:11:04 Possible [place] AV block is now evident Electronically Signed On 04-23-2022 19:30:43 EDT by Barry Stewart
== END 2022-04-21 17:02 | disposition left against medical advice (07) ==
LOC: ED 12:28
DX: I51.9 Heart disease, unspecified (principal); Z53.21 Procedure and treatment not carried out due to patient leaving prior to being seen by health care provider
CPT/HCPCS: 71046; 93005